=== PATIENT | female | born 1970 | race Caucasian/White ===

== ENCOUNTER 2017-01-15 21:41 | Emergency (ER) | payer OTHER ==
[~2017-01-15] VITALS: Ht 167.6 cm; Wt 92.3 kg
[~2017-01-15 21:41] MED LIST: CHOLESTROL MED; HYDR-3534 PO; IBUP800T23 PO; [UNRECOGNIZED DRUG - REMARK]
[2017-01-15 21:45] VITALS: BP 164/111; PULSE 102; RESP 20; TEMP 98; O2SAT 97
[2017-01-15 21:54] VITALS: BP 183/98; PULSE 101; RESP 24; O2SAT 98
[2017-01-15] MEDS ORDERED: ROBILIQ (22:15)
[2017-01-15] MEDS ORDERED: GLUC1TAB41 (22:15)
[2017-01-15] MEDS ORDERED: CETI5TAB2 PO (22:15)
[2017-01-15] MEDS ORDERED: BIOTCAP PO (22:15)
[2017-01-15] MEDS ORDERED: FISH500C (22:15)
[2017-01-15] MEDS ORDERED: LISI10TA3 PO (22:15)
[2017-01-15] MEDS ORDERED: MULTTAB24 (22:15)
[2017-01-15] MEDS ORDERED: TYLE325T PO (22:15)
[2017-01-15] MEDS ORDERED: ALBUAER3 INH (22:15)
[2017-01-15] MEDS ORDERED: PROB1CAP12 (22:15)
[2017-01-15] MEDS ORDERED: VITA100064 PO (22:15)
[2017-01-15] MEDS ORDERED: UMEC1AER INH (22:15)
[2017-01-15 22:30] VITALS: BP 155/82; PULSE 95; RESP 22; TEMP 98; O2SAT 98
[2017-01-15] MEDS ORDERED: SODIUM CHLOR 0.9% 1000 ML INJ 1,000 ML IV SCH (22:38)
[2017-01-15] MEDS ORDERED: ONDANSETRON HCL 4 MG/2 ML VIAL IVP ONE (22:45)
[2017-01-15] MEDS ORDERED: SODIUM CHLORIDE 0.9% FLUSH 10 ML FLUSH IV FLUSH PRN (22:45)
[2017-01-15] MEDS ORDERED: HYDROmorphone HCL PF 1 MG/ML VIAL IV PUSH ONE (22:45)
--- NOTE | 2017-01-15 22:56 | RADHPO ---
EXAM DATE/TIME: 01/15/2017 22:44 [facility] COMPARISON: No previous studies available for comparison. INDICATIONS : Patient complains of lower abdominal pain. MEDICAL HISTORY : None. SURGICAL HISTORY : Tubal ligation. ENCOUNTER: Initial ACUITY: 3 days PAIN SCORE: 9/10 LOCATION: Abdomen FINDINGS: A single view of the chest demonstrates the lungs to be symmetrically aerated without evidence of mas s, infiltrate or effusion. The cardiomediastinal contours are unremarkable. Osseous structures are intact. CONCLUSION: No evidence of acute cardiopulmonary disease. Sen Diaz MD on January 15, 2017 at 22:54 Board Certified Radiologist. This report was verified electronically.
[2017-01-15 23:40] LABS: AUTOMATED NEUTROPHIL # 7.5 TH/MM3 (1.8-7.7); BASOPHIL # 0.1 TH/MM3 (0-0.2); BASOPHIL % 0.8 % (0.0-2.0); EOSINOPHIL # 0.1 TH/MM3 (0-0.4); EOSINOPHIL % 0.7 % (0.0-4.0); HEMO FLAGS DIFF FINAL; LYMPH % 24.6 % (9.0-44.0); LYMPHOCYTE # 2.8 TH/MM3 (1.0-4.8); MEAN CELL VOLUME 84.8 FL (80.0-100.0); MEAN CORPUSCULAR HEMOGLOBIN 28.8 PG (27.0-34.0); MONO % 7.4 % (0.0-8.0); NEUT % 66.5 % (16.0-70.0); PLATELET COUNT 369 TH/MM3 (150-450); RED BLOOD COUNT 4.25 MIL/MM3 (4.00-5.30); RED CELL DISTRIBUTION WIDTH 12.6 % (11.6-17.2); WHITE BLOOD COUNT 11.3 TH/MM3 (4.0-11.0)
[2017-01-15 23:41] LABS: BLOOD, URINE SMALL (NEG); GLUCOSE,URINE NEG (NEG); KETONE, URINE NEG (NEG); NITRITE,URINE NEG (NEG); PH, URINE 5.5 (5.0-8.5)
[2017-01-15 23:49] LABS: CHLORIDE 107 MEQ/L (98-107); SODIUM (NA) 140 MEQ/L (136-145)
[2017-01-15 23:50] VITALS: BP 124/75; PULSE 89; RESP 17; O2SAT 97
[2017-01-15 23:51] LABS: POTASSIUM 4.1 MEQ/L (3.5-5.1)
[2017-01-15 23:53] LABS: ANION GAP 10 MEQ/L (5-15); BICARBONATE 23.1 MEQ/L (21.0-32.0); BLOOD UREA NITROGEN 9 MG/DL (7-18)
[2017-01-15 23:55] LABS: URINE COLOR YELLOW (YELLW/STRAW)
[2017-01-15 23:56] LABS: ALT (GPT) 27 U/L (10-53); AST (GOT) 26 U/L (15-37); GLOMERULAR FILTRATION RATE 102 ML/MIN (>89)
[2017-01-15 23:56] LABS: MUCUS URINE MOD /lpf (OCC)
[2017-01-15 23:57] LABS: SQUAMOUS EPITHELIAL CELL URINE 0-5 /hpf (0-5)
[2017-01-15 23:58] LABS: TOTAL BILIRUBIN ADULT 0.3 MG/DL (0.2-1.0)
[2017-01-15 23:59] LABS: BACTERIA, URINE FEW /hpf; COMMENT (UR) CULT NOT INDICATED; CULTURE IF INDICATED CULT NOT INDICATED; URIC ACID CRYSTALS, URINE MOD /hpf
[2017-01-15 23:59] LABS: ALKALINE PHOSPHATASE 82 U/L (45-117)
--- NOTE | 2017-01-16 00:42 | RADHPO ---
EXAM DATE/TIME: 01/16/2017 00:02 [facility] COMPARISON: No previous studies available for comparison. INDICATIONS : Diffuse abdominal pain. IV CONTRAST: 85 cc Omnipaque 350 (iohexol) IV ORAL CONTRAST: No oral contrast ingested. RADIATION DOSE: 19.41 CTDIvol (mGy) MEDICAL HISTORY : Hypertension. SURGICAL HISTORY : section. Tubal ligation. ENCOUNTER: Initial ACUITY: 3 days PAIN SCALE: 10/10 LOCATION: All quadrants. TECHNIQUE: Volumetric scanning of the abdomen and pelvis was performed. Using automated exposure control and adjustment of the mA and/or kV according to patient size, radiation dose was kept as low as reasonably achievable to obtain optimal diagnostic quality images. FINDINGS: CT Abdomen: The liver, spleen, pancreas, adrenals are unremarkable. There is no evidence for any appr eciable pathological adenopathy, free fluid, or bowel obstruction. There are 2 stones in the right k idney measuring 5 mm in the right mid pole and almost 3-4 mm in right lower pole. There is also an ap proximate 3-4 mm left renal stone. There is no ureteral stone and there is no hydronephrosis on eithe r side. CT pelvis: There is an approximate 5.5 cm cystic mass in the right ovary and there may be uterine fib roids within the uterus as well. There are 2 small bone islands within the left symphysis pubis the l arger one measures 1.2 cm in size. There is a tiny amount of loculated fluid in the cul-de-sac. CONCLUSION: 1. Nonobstructing renal stones bilaterally. 2. Right ovarian cystic mass nonspecific may be functional and clinical correlation is suggested with pelvic ultrasound in 3 months. Guadalupe Srinivasan MD on January 16, 2017 at 0:34 Board Certified Radiologist. This report was verified electronically.
[2017-01-16 01:00] VITALS: BP 165/75; PULSE 82; RESP 17; O2SAT 98
[2017-01-16] MEDS ORDERED: KETOROLAC TROMETHAMINE 30 MG/ML (IVP) VIAL IV PUSH ONE (01:00)
--- NOTE | 2017-01-16 01:01 | PD ---
HPI Chief Complaint: Abdominal Pain Time Seen by Provider: 22:38 Travel History International Travel<30 days: No Contact w/Intl Traveler<30days: No Traveled to known affect area: No History of Present Illness HPI 46 old female presents to the emergency department complaining of increasing right lower quadrant abdominal pain since Sunday. Patient's had nausea and vomiting. No diarrhea dysuria frequency urgency or hematuria. Patient has been bilateral lower quadrant moving to the right lower quadrant. Patient reports pain as severe. No prior history of similar symptoms. PFSH Past Medical History High Cholesterol: Yes Diminished Hearing: No Hypertension: Yes Medical other: Yes (Thyroid nodule - non cancerous) Musculoskeletal: Yes (FX STERNUM 1990, L1 L2 COMPRESSION FX ) Respiratory: Yes (ASTHMA; sinusitis) Tetanus Vaccination: < 5 Years Influenza Vaccination: Yes ?: Not LMP: 12/23/2016 Tubal Ligation: Yes Past Surgical History Section: Yes Eye Surgery: Yes ("PRK" for eyes) Gynecologic Surgery: Yes (; tubal ligation; cervical "cold knife" BX for precancerous cells) Other Surgery: Yes (mole/cyst removal) Social History Alcohol Use: No Tobacco Use: No Substance Use: No Allergies-Medications (Allergen,Severity, Reaction): Coded Allergies: Cipro (Verified Allergy, Severe, ITCHING, 01/15/17) STRANGE BODY MOVEMENT Phenergan (Verified Allergy, Severe, UNCONTROLLED STRANGE BODY MOVEMENT, ) Reported Meds & Prescriptions Reported Meds & Active Scripts Active Zofran Odt (Ondansetron Odt) 4 Mg Tab 4 Mg SL Q6HR PRN Lortab (Hydrocodone-Acetaminophen) 5-325 Mg Tab 1 Tab PO Q6H PRN Ibuprofen 800 Mg Tab 800 Mg PO Q8H PRN Reported Tylenol (Acetaminophen) 325 Mg Tab 325 Mg PO Q4H PRN Multi For Her (Multiple Vitamins W/ Minerals) 1 Tab Tab Proair Hfa 8.5 GM Inh (Albuterol Sulfate) 90 Mcg/Act Aer 2 Puff INH Q4-6H PRN 108 mcg/actuation Acidophilus (Probiotic Product) 1 Cap Cap Czpddshn-Zxhdwp-Hej D3 Tab (Glucosamine/Chondroitin/Vit D3) 1 Each Tablet Biotin 5 Mg Cap 5 Mg PO DAILY Vitamin D (Cholecalciferol) 1,000 Unit Tab 1,000 Units PO DAILY Fish Oil ([place]-3 Fatty Acids) 500 Mg Cap Unknown Dose Lisinopril 10 Mg Tab 10 Mg PO DAILY Anoro Ellipta Inh (Umeclidinium/Vilanterol) 62.5-25 Mcg/Act Aero 1 Puff INH DAILY Cetirizine (Cetirizine HCl) 5 Mg Tab 5 Mg PO HS Robitussin Peak Cold Mult Liq (Uvephlyfbilti-RR-Gvgklvhmmss Liq) 5-10-100 Mg/5 Ml Liq Review of Systems Except as stated in HPI: all other systems reviewed are Neg General / Constitutional: No: Fever, Chills HENT: No: Congestion Cardiovascular: No: Chest Pain or Discomfort Respiratory: No: Shortness of Breath Gastrointestinal: Positive: Nausea, Vomiting, Abdominal Pain Genitourinary: No: Dysuria, Flank Pain, Vaginal Bleeding Musculoskeletal: No: Myalgias, Arthralgias Skin: No Rash Neurologic: No: Weakness Psychiatric: No: Anxiety Hematologic/Lymphatic: No: Easy Bruising Physical Exam Narrative GENERAL: Well-developed well-nourished female in no acute distress no respiratory distress appears to be in some discomfort SKIN: Warm and dry. HEAD: Normocephalic. EYES: No scleral icterus. No injection or drainage. NECK: Supple, trachea midline. No JVD or lymphadenopathy. CARDIOVASCULAR: Regular rate and rhythm without murmurs, gallops, or rubs. RESPIRATORY: Breath sounds equal bilaterally. No accessory muscle use. GASTROINTESTINAL: Abdomen soft, bilateral lower quadrant tenderness to palpation right greater than left, nondistended. Pelvic exam: Normal external exam no redness induration or lesions; speculum exam no blood no clots no tissue cervical os closed; bimanual exam no adnexal mass or tenderness. MUSCULOSKELETAL: No cyanosis, or edema. BACK: Nontender without obvious deformity. No CVA tenderness. Data Data Last Documented VS Vital Signs Date Time Temp Pulse Resp B/P Pulse Ox O2 Delivery O2 Flow Rate FiO2 01/16/17 03:53 83 122/77 98 01/16/17 02:30 17 Room Air 01/15/17 22:30 98.0 Orders Complete Blood Count With Diff (01/15/17 22:38) Comprehensive Metabolic Panel (01/15/17 22:38) Lipase (01/15/17 22:38) Lactic Acid (01/15/17 22:38) Urinalysis - C+S If Indicated (01/15/17 22:38) Ct Abd/Pel W Iv Contrast(Rout) (01/15/17 22:38) Iv Access Insert/Monitor (01/15/17 22:38) Ecg Monitoring (01/15/17 22:38) Oximetry (01/15/17 22:38) Ondansetron Inj (Zofran Inj) (01/15/17 22:45) Sodium Chlor 0.9% 1000 Ml Inj (Ns 1000 M (01/15/17 22:38) Sodium Chloride 0.9% Flush (Ns Flush) (01/15/17 22:45) Chest, Single Ap (01/15/17 22:38) Ed Urine Pregnancytest Poc (01/15/17 22:38) Hydromorphone Pf Inj (Dilaudid Pf Inj) (01/15/17 22:45) Blood Culture (01/15/17 22:38) Ketorolac Inj (Toradol Inj) (01/16/17 01:00) Iohexol 350 Inj (Omnipaque 350 Inj) (01/16/17 01:18) Us Pelvis Comp W Doppler (01/16/17 ) Labs Laboratory Tests Test 01/15/17 01/15/17 23:02 23:07 Urine Color YELLOW Urine Turbidity SLIGHT Urine pH 5.5 Urine Specific [place] 1.026 Urine Protein NEG mg/dL Urine Glucose (UA) NEG mg/dL Urine Ketones NEG mg/dL Urine Occult Blood SMALL Urine Nitrite NEG Urine Bilirubin NEG Urine Leukocyte Esterase NEG Urine WBC 3-5 /hpf Urine Squamous Epithelial 0-5 /hpf Cells Urine Uric Acid Crystals MOD /hpf Urine Bacteria FEW /hpf Urine Mucus MOD /lpf Microscopic Urinalysis Comment CULT NOT INDICATED White Blood Count 11.3 TH/MM3 Red Blood Count 4.25 MIL/MM3 Hemoglobin 12.3 GM/DL Hematocrit 36.0 % Mean Corpuscular Volume 84.8 FL Mean Corpuscular Hemoglobin 28.8 PG Mean Corpuscular Hemoglobin 34.0 % Concent Red Cell Distribution Width 12.6 % Platelet Count 369 TH/MM3 Mean Platelet Volume 8.1 FL Neutrophils (%) (Auto) 66.5 % Lymphocytes (%) (Auto) 24.6 % Monocytes (%) (Auto) 7.4 % Eosinophils (%) (Auto) 0.7 % Basophils (%) (Auto) 0.8 % Neutrophils # (Auto) 7.5 TH/MM3 Lymphocytes # (Auto) 2.8 TH/MM3 Monocytes # (Auto) 0.8 TH/MM3 Eosinophils # (Auto) 0.1 TH/MM3 Basophils # (Auto) 0.1 TH/MM3 CBC Comment DIFF FINAL Differential Comment Sodium Level 140 MEQ/L Potassium Level 4.1 MEQ/L Chloride Level 107 MEQ/L Carbon Dioxide Level 23.1 MEQ/L Anion Gap 10 MEQ/L Blood Urea Nitrogen 9 MG/DL Creatinine 0.63 MG/DL Estimat Glomerular Filtration 102 ML/MIN Rate Random Glucose 135 MG/DL Lactic Acid Level 1.5 mmol/L Calcium Level 8.7 MG/DL Total Bilirubin 0.3 MG/DL Aspartate Amino Transf 26 U/L (AST/SGOT) Alanine Aminotransferase 27 U/L (ALT/SGPT) Alkaline Phosphatase 82 U/L Total Protein 7.6 GM/DL Albumin 3.4 GM/DL Lipase 192 U/L MDM Medical Decision Making Medical Screen Exam Complete: Yes Emergency Medical Condition: Yes Medical Record Reviewed: Yes Interpretation(s) Pelvic US FINDINGS: The uterus is inhomogeneous with fibroids within it the largest measures 3.8 cm in size. There is an approximate 5.9 cm complex cyst in the right ovary. The left ovary is unremarkable and there is no free fluid. Blood flow to both ovaries appears within normal limits. CONCLUSION: Uterine fibroids and large complex mass in the right ovary most likely a complicated cyst, repeat pelvic ultrasound is suggested in 6 months as a conservative follow up. Guadalupe Srinivasan MD on January 16, 2017 at 3:14 Board Certified Radiologist. This report was verified electronically. Last Impressions Pelvis Ultrasound 01/16/17 0000 Signed Impressions: Service Date/Time: Monday, January 16, 2017 02:13 - CONCLUSION: Uterine fibroids and large complex mass in the right ovary most likely a complicated cyst, repeat pelvic ultrasound is suggested in 6 months as a conservative follow up. Guadalupe Srinivasan MD Chest X-Ray [id number] Signed Impressions: Service Date/Time: Sunday, January 15, 2017 22:44 - CONCLUSION: No evidence of acute cardiopulmonary disease. Sen Diaz MD Abdomen/Pelvis CT [id number] Signed Impressions: Service Date/Time: Monday, January 16, 2017 00:02 - CONCLUSION: 1. Nonobstructing renal stones bilaterally. 2. Right ovarian cystic mass nonspecific may be functional and clinical correlation is suggested with pelvic ultrasound in 3 months. Guadalupe Srinivasan MD CBC & BMP Diagram 01/15/17 23:07 Vital Signs Date Time Temp Pulse Resp B/P Pulse Ox O2 Delivery O2 Flow Rate FiO2 01/16/17 02:30 85 17 114/66 99 Room Air 01/16/17 02:30 17 01/16/17 01:00 82 17 165/75 98 Room Air 01/15/17 23:50 89 17 124/75 97 Room Air 01/15/17 23:30 16 01/15/17 22:30 98.0 95 22 155/82 98 Room Air 01/15/17 21:54 101 24 183/98 98 Room Air 01/15/17 21:45 98.0 102 20 164/111 97 Lactic acid: 1.5, not elevated Differential Diagnosis Abdominal pain, appendicitis, diverticulitis, ovarian cyst torsion, renal colic , bowel obstruction Narrative Course IV access obtained specimens collected and sent for resulting Patient administered Dilaudid for pain and Zofran IV fluids CBC is automated differential insignificant elevated 11,300 with lactic acid 1.5 complete metabolic panel values grossly normal range Urinalysis moderate uric acid crystals otherwise grossly unremarkable and culture not indicated Patient sent for CT abdomen and pelvis with contrast identifies a right adnexal mass or cystic mass with recommendation for outpatient follow-up by ultrasound however patient having increasing pain therefore proceed with ultrasound to evaluate for ovarian torsion Ultrasound of the pelvis identifies right adnexal cystic mass with recommendation for outpatient follow-up good blood flow to both ovaries Patient is informed of all lab results and clinically improved and stable for outpatient management. Diagnosis Primary Impression: Abdominal pain Qualified Code: R10.31 - Right lower quadrant abdominal pain Additional Impressions: Ovarian cystic mass Nephrolithiasis Referrals: [facility] call for appointment Patient Instructions: Narcotic given in the ED, General Instructions, Moderate Sedation in Children (ED) Additional Instructions: Increase fluid hydration Follow-up with primary care provider Follow-up with art consultant Take medication as prescribed Return to the emergency department for any concerns or change condition Follow clear liquid diet for next 12-24 hours advance as tolerated to bland diet then regular diet Med/Other Pt SpecificInfo: Prescription(s) given Scripts Ondansetron Odt (Zofran Odt)4 Mg Tab4 Mg SL Q6HR PRN (Nausea/Vomiting) #10 TAB Ref 0 Prov:Malena Mckeon MD 01/16/17 Hydrocodone-Acetaminophen (Lortab)5-325 Mg Tab1 Tab PO Q6H PRN (PAIN) #12 TAB Ref 0 Prov:Malena Mckeon MD 01/16/17 Disposition: 01 DISCHARGE HOME Condition: Stable Malena Mckeon MD Jan 16, 2017 01:01
[2017-01-16] MEDS ORDERED: IOHEXOL 350 MG/ML 10 ML VIAL (for RAD DIAG) IV ONE (01:18)
[2017-01-16 02:30] VITALS: BP 114/66; PULSE 85; RESP 17; O2SAT 99
--- NOTE | 2017-01-16 03:17 | RADHPO ---
EXAM DATE/TIME: 01/16/2017 02:13 [facility] COMPARISON: No previous studies available for comparison. INDICATIONS : Pelvic pain. MEDICAL HISTORY : Hypercholesterolemia. Hypertension. Asthma. Spinal fracture. Sternum fracture. Thyroid nodule. SURGICAL HISTORY : section. Tubal ligation. Cervical biopsy. Mole/cyst removal. ENCOUNTER: Initial ACUITY: 3 days PAIN SCORE: 5/10 LOCATION: Bilateral pelvis MEASUREMENTS: UTERUS: 9.3 x 6.3 x 5.3 cm ENDOMETRIAL STRIPE: 13 mm RIGHT OVARY: 6.2 x 6.3 x 5.1 cm LEFT OVARY: 3.1 x 2.2 x 1.7 cm FINDINGS: The uterus is inhomogeneous with fibroids within it the largest measures 3.8 cm in size. There is an approximate 5.9 cm complex cyst in the right ovary. The left ovary is unremarkable and there is no fr ee fluid. Blood flow to both ovaries appears within normal limits. CONCLUSION: Uterine fibroids and large complex mass in the right ovary most likely a complicated cyst, repeat pel antoinette ultrasound is suggested in 6 months as a conservative follow up. Guadalupe Srinivasan MD on January 16, 2017 at 3:14 Board Certified Radiologist. This report was verified electronically.
[2017-01-16] MEDS ORDERED: ZOFR4TAB3 SL (03:40)
[2017-01-16] MEDS ORDERED: HYDR-3533 PO (03:40)
[2017-01-16 03:53] VITALS: BP 122/77
== END 2017-01-16 04:14 | disposition home or self-care (01) ==
LOC: PHED 21:41
DX: R10.31 Right lower quadrant pain (principal); R11.2 Nausea with vomiting, unspecified; N20.0 Calculus of kidney; N83.201 Unspecified ovarian cyst, right side; E78.00 Pure hypercholesterolemia, unspecified; I10 Essential (primary) hypertension; J45.909 Unspecified asthma, uncomplicated; D25.9 Leiomyoma of uterus, unspecified
CPT/HCPCS: 71010; 74177; 76856; 80053; 81001; 83605; 83690; 84703; 85025; 87040; 93975; 96361; 96374; 96375; 99285; J1170; J1885; J2405; J7030; Q9967

== ENCOUNTER 2017-07-25 17:26 | Emergency (ER) | payer OTHER ==
[~2017-07-25] VITALS: Ht 167.6 cm; Wt 90.0 kg
[~2017-07-25 17:26] MED LIST changes: +ALBUAER3 INH; +BIOTCAP PO; +CETI5TAB2 PO; -CHOLESTROL MED; +FISH500C; +GLUC1TAB41; +HYDR-3533 PO; -HYDR-3534 PO; +IBUP1TAB7 PO; -IBUP800T23 PO; +LISI10TA3 PO; +MULTTAB24; +PROB1CAP12; +ROBILIQ; +TYLE325T PO; +UMEC1AER INH; +VITA100064 PO; +ZOFR4TAB3 SL; -[UNRECOGNIZED DRUG - REMARK]
[2017-07-25 17:29] VITALS: BP 178/81; PULSE 105; RESP 18; TEMP 100.1; O2SAT 100
--- NOTE | 2017-07-25 18:03 | PD ---
HPI Chief Complaint: Cold / Flu Symptoms Time Seen by Provider: 17:51 Travel History International Travel<30 days: Yes Contact w/Intl Traveler<30days: Yes Name of Country Traveled to: [facility] Traveled to known affect area: No History of Present Illness HPI The patient was seen and examined in the presence of the nurse. This patient complains of sore throat. She is pain when she swallows. She's had low-grade fevers. She denies productive cough or laryngitis symptoms. Her daughter has been diagnosed with scarlet fever and is on penicillin. Symptom severity is moderate. PFSH Past Medical History Hx Anticoagulant Therapy: No Asthma: Yes Cardiovascular Problems: Yes (HTN) High Cholesterol: Yes Diabetes: No Diminished Hearing: No Hypertension: Yes Medical other: Yes (herniated and bulging discs) Musculoskeletal: Yes (FX STERNUM 1991, L1 L2 COMPRESSION FX ) Respiratory: Yes (ASTHMA; sinusitis) Tetanus Vaccination: < 5 Years Influenza Vaccination: Yes ?: Not LMP: 07/19/17 Tubal Ligation: Yes Past Surgical History Section: Yes Eye Surgery: Yes ("PRK" for eyes) Gynecologic Surgery: Yes (; tubal ligation; cervical "cold knife" BX for precancerous cells) Other Surgery: Yes (mole/cyst removal) Social History Alcohol Use: No Tobacco Use: No Substance Use: No Allergies-Medications (Allergen,Severity, Reaction): Coded Allergies: ciprofloxacin (Unverified Allergy, Severe, ITCHING, 07/25/17) STRANGE BODY MOVEMENT lisinopril (Verified Allergy, Severe, 07/25/17) promethazine (Unverified Allergy, Severe, UNCONTROLLED STRANGE BODY MOVEMENT, 07/25/17) Reported Meds & Prescriptions Reported Meds & Active Scripts Active Zofran Odt (Ondansetron Odt) 4 Mg Tab 4 Mg SL Q6HR PRN Lortab (Hydrocodone-Acetaminophen) 5-325 Mg Tab 1 Tab PO Q6H PRN Ibuprofen 800 Mg Tab 800 Mg PO Q8H PRN Reported Tylenol (Acetaminophen) 325 Mg Tab 325 Mg PO Q4H PRN Multi For Her (Multiple Vitamins W/ Minerals) 1 Tab Tab Proair Hfa 8.5 GM Inh (Albuterol Sulfate) 90 Mcg/Act Aer 2 Puff INH Q4-6H PRN 108 mcg/actuation Acidophilus (Probiotic Product) 1 Cap Cap Vxsqklfk-Bmasuu-Eln D3 Tab (Glucosamine/Chondroitin/Vit D3) 1 Each Tablet Biotin 5 Mg Cap 5 Mg PO DAILY Vitamin D (Cholecalciferol) 1,000 Unit Tab 1,000 Units PO DAILY Fish Oil ([place]-3 Fatty Acids) 500 Mg Cap Unknown Dose Lisinopril 10 Mg Tab 10 Mg PO DAILY Anoro Ellipta Inh (Umeclidinium/Vilanterol) 62.5-25 Mcg/Act Aero 1 Puff INH DAILY Cetirizine (Cetirizine HCl) 5 Mg Tab 5 Mg PO HS Robitussin Peak Cold Mult Liq (Totingkuttljq-FE-Lxkgwuyennl Liq) 5-10-100 Mg/5 Ml Liq Review of Systems General / Constitutional: Positive: Fever HENT: Positive: Sore Throat Cardiovascular: No: Chest Pain or Discomfort Respiratory: No: Shortness of Breath Physical Exam Narrative GASTROINTESTINAL: Abdomen soft, non-tender, nondistended. Positive bowel sounds. No hepato-splenomegaly, or palpable masses. No guarding. NECK: Symmetrical appearance, midline trachea. No mass or crepitus. Thyroid without enlargement, tenderness, or mass. Throat: Has posterior pharynx erythema and exudate on both tonsils, uvula midline without swelling Data Data Last Documented VS Vital Signs Date Time Temp Pulse Resp B/P (MAP) Pulse Ox O2 Delivery O2 Flow Rate FiO2 07/25/17 17:56 Room Air 07/25/17 17:29 100.1 105 18 178/81 (113) 100 MDM Medical Decision Making Medical Screen Exam Complete: Yes Emergency Medical Condition: Yes Medical Record Reviewed: Yes Differential Diagnosis Tonsillitis, pharyngitis, viral syndrome Narrative Course I have reviewed the patient's electronic medical record. Given the presentation and lack of obvious viral symptoms and daughter with her diagnosis, I think it appropriate to treat this is strep and not culture I don't think the culture would change attendant No evidence of peritonsillar abscess I prescribed penicillin as well as Magic mouthwash for symptom relief The patient was advised to follow up with their physician and return if they worsen. Diagnosis Primary Impression: Tonsillitis with exudate Additional Instructions: The patient was advised to follow up with their physician and return if they worsen. The patient was warned about potential sedation for the medications they will receive on prescription. Med/Other Pt SpecificInfo: Prescription(s) given Disposition: 01 DISCHARGE HOME Condition: Stable Jose Juan Ku MD Jul 25, 2017 18:03
[2017-07-25] MEDS ORDERED: LOSA50TA PO (18:06)
[2017-07-25] MEDS ORDERED: PENI500T PO (18:15)
[2017-07-25] MEDS ORDERED: MAGICADU2 SWISH-SWAL (18:15)
== END 2017-07-25 18:22 | disposition home or self-care (01) ==
LOC: PHED 17:26
DX: J03.90 Acute tonsillitis, unspecified (principal); J45.909 Unspecified asthma, uncomplicated; I10 Essential (primary) hypertension; E78.00 Pure hypercholesterolemia, unspecified
CPT/HCPCS: 99284